=== PATIENT | female | born 1985 | race Caucasian/White ===

== ENCOUNTER 2018-11-02 16:55 | Outpatient (CLI) | payer OTHER ==
[~2018-11-02] VITALS: Ht 165.1 cm; Wt 81.9 kg
[~2018-11-02 16:55] MED LIST: PRENATAL PO
[2018-11-02 17:45] VITALS: BP 107/67; PULSE 76; RESP 18; Ht 165.1 cm; Wt 81.9 kg
--- NOTE | 2018-11-02 18:29 | TRIAGE ---
OB Triage Datetime Report Generated by CPN: 11/02/2018 18:29 Datetime: 11/02/2018 17:43 Assessment Type: Triage Maternal Assessment Level of Consciousness: Keenly Alert, Responsive DTR's/Clonus: DTRs 2+; No Clonus Headache: Denies Blurred Vision: No Respiratory Effort: Unlabored; Regular Rhythm; Equal Expansion Breath Sounds, Left: Clear and Equal Breath Sounds, Right: Clear and Equal Nausea/Vomiting: Denies RUQ Epigastric Pain: Denies Lower Extremities Edema: None Degree: None Upper Extremities Edema: None Degree: None Facial Edema: None Fall Risk Assessment History of Falling: (0) No Secondary Diagnosis: (0) No Ambulatory Aid: (0) Bedrest/Nurse Assist IV Therapy: (0) No Gait: (0) Normal/Bedrest/Immobile Mental Status: (0) Oriented to Own Ability Fall Score: 0 Fall Risk Score Definition: No Risk: No action required Datetime: 11/02/2018 17:41 Time of Arrival: 11/02/2018 16:48 EGA: 33.6 Arrived By: Ambulatory Arrived From: Dr. Regan Chief Complaint: PT. SENT FROM CLINIC FOR AUDIBLE DECEL IN OFFICE TODAY Movement: Present Contractions: Denies/Absent Rupture of Membranes: Denies Vaginal Bleeding: None Vaginal Discharge: Denies Recent Sexual Intercouse: Denies Abdominal Trauma: Not Applicable Patient Complaints: None Time Provider Notified: 11/02/2018 17:45 Provider Notified: ALEJO Initial Plan: NST/BPP Datetime: 11/02/2018 17:39 Labor Evaluation Monitor Mode: External Heart Rate Monitor Mode: External US
--- NOTE | 2018-11-02 18:30 | PN ---
Triage Information Date/Time 11/02/2018 Reason for visit: 33-year-old female at 33 weeks and 6-day gestation sent in from clinic because of heart tones and a bradycardic zone episode Weeks of Gestation 33 weeks and 6 days /Para 7 para 4 Diabetes: gestational Diabetes management: diet controlled Hypertention: none Objective Vital Signs Date Temp Pulse Resp B/P (MAP) Pulse Ox O2 O2 Flow FiO2 Time Delivery Rate 11/02/18 98.6 76 18 107/67 Room Air 17:45 (80) Heart Rate: 140's Heart Rate Comments Reactive Contractions: None Results/Medications Imaging Results 1. Single living intrauterine gestation with cephalic presentation. 2. Biophysical profile = 8/8. 3. ZACHARY = 14.9 cm Disposition: Discharge Assessment/Plan Patient with no episodes of heart tone deceleration in hospital heart tones appear reactive We will follow in antepartum testing unit EMIGDIO for diabetes ANDRÉS APARICIO MD Nov 02, 2018 18:30
== END 2018-11-02 18:40 | disposition home or self-care (01) ==
LOC: OBT 16:55 → L-D 16:56 → OBT 18:40
PROVIDERS: ATTEND Obstetrics & Gynecology
DX: O36.8330 Maternal care for abnormalities of the fetal heart rate or rhythm, third trimester, not applicable or unspecified (principal); Z3A.33 33 weeks gestation of pregnancy
CPT/HCPCS: 76818; Z7500; G0463

== ENCOUNTER 2018-12-15 09:30 | Inpatient (IN) | payer OTHER ==
[~2018-12-15] VITALS: Ht 165.1 cm; Wt 82.0 kg
[~2018-12-15 09:30] MED LIST changes: +IBUP-1542 PO
[2018-12-15 11:32] VITALS: Ht 165.1 cm; Wt 82.0 kg
[2018-12-15] MEDS ORDERED: LACTATED RINGER'S 1,000 ML IV PRN (11:33)
[2018-12-15] MEDS: LACTATED RINGER'S 1,000 ML IV SCH (11:58)
[2018-12-15] MEDS ORDERED: LIDOCAINE 1% (MPF) 30 ML INJ INJ PRN (12:00)
[2018-12-15] MEDS ORDERED: MISOPROSTOL 200 MCG TAB PR PRN (12:00)
[2018-12-15] MEDS ORDERED: BUTORPHANOL 2 MG INJ IV PRN (12:00)
[2018-12-15] MEDS ORDERED: CARBOPROST 250 MCG INJ IM PRN (12:00)
[2018-12-15] MEDS ORDERED: OXYTOCIN 30 UNITS/LR 500 ML IV PRN (12:00)
[2018-12-15] MEDS ORDERED: OXYTOCIN 30 UNITS/LR 500 ML IV SCH ×2 (12:00)
[2018-12-15] MEDS ORDERED: IBUPROFEN 600 MG TAB PO PRN (12:00)
[2018-12-15] MEDS ORDERED: MINERAL OIL LIGHT 10 ML VIAL TOP ONE (12:00)
[2018-12-15] MEDS ORDERED: METHYLERGONOVINE 0.2 MG INJ IM PRN (12:00)
[2018-12-15] MEDS: MISOPROSTOL 50 MCG CAPSULE PO SCH ×2 (16:30→22:48)
[2018-12-15] MEDS ORDERED: MISOPROSTOL 50 MCG CAPSULE PO SCH (18:00)
[2018-12-16] MEDS: LACTATED RINGER'S 1,000 ML IV SCH ×3 (03:14→15:42)
[2018-12-16] MEDS: MISOPROSTOL 50 MCG CAPSULE PO SCH ×2 (04:32→09:37)
[2018-12-16] MEDS ORDERED: MISOPROSTOL 50 MCG CAPSULE PO SCH (05:00)
[2018-12-16] MEDS ORDERED: OXYTOCIN 30 UNITS/LR 500 ML IV SCH (11:30)
[2018-12-16] MEDS ORDERED: FENTAnyl 2MCG/ML-ROPIV 0.2% 100 ML BAG EPI SCH ×2 (15:00→17:00)
[2018-12-16] MEDS ORDERED: ONDANSETRON 4 MG INJ IV PRN (15:00)
[2018-12-16] MEDS ORDERED: DIPHENHYDRAMINE 50 MG INJ IV PRN (15:00)
[2018-12-16] MEDS ORDERED: NALOXONE (0.4 MG/ML) INJ IV PRN ×2 (15:00→17:00)
[2018-12-16] MEDS ORDERED: ACETAMINOPHEN 500 MG TAB PO STA (16:37)
[2018-12-16] MEDS ORDERED: KETOROLAC 30 MG INJ IV STA (16:37)
[2018-12-16 18:35] VITALS: BP 112/61; RESP 18
[2018-12-16] MEDS: LACTATED RINGER'S 1,000 ML IV* SCH (18:57)
[2018-12-16] MEDS ORDERED: MISOPROSTOL 200 MCG TAB PR PRN (19:00)
[2018-12-16] MEDS ORDERED: LANOLIN HPA 1 PKT TOP PRN (19:00)
[2018-12-16] MEDS ORDERED: DIBUCAINE 1% 30 GM OINT TOP PRN (19:00)
[2018-12-16] MEDS ORDERED: CARBOPROST 250 MCG INJ IM PRN (19:00)
[2018-12-16] MEDS ORDERED: WITCH HAZEL/GLYCERIN PAD PR PRN (19:00)
[2018-12-16] MEDS ORDERED: METHYLERGONOVINE 0.2 MG INJ IM PRN (19:00)
[2018-12-16] MEDS ORDERED: OXYTOCIN 30 UNITS/LR 500 ML IV PRN (19:00)
[2018-12-16] MEDS ORDERED: BENZOCAINE 20% 56 ML SPRAY TOP PRN (19:00)
[2018-12-16] MEDS ORDERED: HYDROCODONE/APAP (5/325) TAB PO PRN ×2 (19:00)
[2018-12-16] MEDS ORDERED: ZOLPIDEM 5 MG TAB PO PRN (19:00)
[2018-12-16 20:00] VITALS: BP 124/68; PULSE 69; RESP 20
[2018-12-16] MEDS: SENNA/DOCUSATE NA (8.6MG/50MG) TAB PO SCH (20:23)
[2018-12-16] MEDS: MAGNESIUM HYDROXIDE 30ML CUP PO SCH (20:23)
[2018-12-16] MEDS: ACCU-CHEK XX SCH ×2 (21:36→22:53)
[2018-12-16] MEDS: IBUPROFEN 600 MG TAB PO SCH (23:39)
[2018-12-16] MEDS: CEPHALEXIN 500 MG CAP PO SCH (23:40)
[2018-12-17] MEDS: LACTATED RINGER'S 1,000 ML IV* SCH ×3 (02:57→18:57)
[2018-12-17 04:16] VITALS: BP 104/57; PULSE 65; RESP 20
[2018-12-17] MEDS: IBUPROFEN 600 MG TAB PO SCH ×4 (05:47→23:59)
[2018-12-17] MEDS: CEPHALEXIN 500 MG CAP PO SCH ×4 (05:47→23:58)
[2018-12-17] MEDS: ACCU-CHEK XX SCH ×2 (07:30→10:05)
[2018-12-17 08:30] VITALS: BP 101/61; PULSE 64; RESP 18
[2018-12-17] MEDS: SENNA/DOCUSATE NA (8.6MG/50MG) TAB PO SCH ×2 (09:12→21:36)
[2018-12-17] MEDS: MAGNESIUM HYDROXIDE 30ML CUP PO SCH ×2 (09:12→21:36)
[2018-12-17 15:55] VITALS: BP 102/62; PULSE 58; RESP 16
[2018-12-17 20:00] VITALS: BP 88/55; PULSE 72; RESP 18
[2018-12-18] MEDS: LACTATED RINGER'S 1,000 ML IV* SCH (02:57)
[2018-12-18 04:00] VITALS: BP 105/61; PULSE 63; RESP 18
[2018-12-18] MEDS: CEPHALEXIN 500 MG CAP PO SCH ×2 (05:55→11:27)
[2018-12-18] MEDS: IBUPROFEN 600 MG TAB PO SCH ×2 (05:55→11:27)
[2018-12-18 08:00] VITALS: BP 107/57; PULSE 76; RESP 18
[2018-12-18] MEDS ORDERED: MEASLES,MUMPS,RUBELLA VACCINE INJ SC* ONE (09:00)
[2018-12-18] MEDS ORDERED: VARICELLA VACCINE LIVE/PF 1,350 UNIT/0.5 ML ML SC* ONE (09:00)
[2018-12-18] MEDS ORDERED: DIPHTH/TET/ACEL PERTUSS (ADULT) 0.5 ML VIAL IM* ONE (09:00)
[2018-12-18] MEDS: MAGNESIUM HYDROXIDE 30ML CUP PO SCH (09:13)
[2018-12-18] MEDS: SENNA/DOCUSATE NA (8.6MG/50MG) TAB PO SCH (09:13)
[2018-12-18 16:07] VITALS: BP 120/58; RESP 18
== END 2018-12-18 16:39 | disposition home or self-care (01) | DRG 807 ==
LOC: L-D 10:10 → PP1 12-16 18:30
PROVIDERS: ADMIT Obstetrics & Gynecology; ATTEND Obstetrics & Gynecology
PROC: 10E0XZZ Delivery of Products of Conception, External Approach (ICD-10-PCS; principal; 2018-12-16)
DX: O48.0 Post-term pregnancy (principal); O69.81X0 Labor and delivery complicated by cord around neck, without compression, not applicable or unspecified; O24.429 Gestational diabetes mellitus in childbirth, unspecified control; Z37.0 Single live birth; Z3A.40 40 weeks gestation of pregnancy
CPT/HCPCS: 76815; 82947; 82962; 85025; 85610; 85730; 86592; 86850; 86900; 86901; 88307; 90716; J2210; J2590; J3010; J7120